=== PATIENT | male | born 1980 | race Caucasian/White ===

== ENCOUNTER 2022-12-01 12:12 | Emergency (ER) | payer SELFPAY ==
[2022-12-01] VITALS (8 sets, daily range): BP systolic 115–139; BP diastolic 72–100
[~2022-12-01] VITALS: Ht 172.7 cm; Wt 105.0 kg
[2022-12-01] MEDS ORDERED: CEFDINIR300 MG PO (14:13)
[2022-12-01] MEDS ORDERED: MUPIROCIN21 TOP (14:13)
== END 2022-12-01 14:30 | disposition home or self-care (01) | DRG 607 ==
LOC: ED 12:12
PROC: 0HDRXZZ Extraction of Toe Nail, External Approach (ICD-10-PCS; principal; 2022-12-01)
DX: L60.0 Ingrowing nail (principal)